=== PATIENT | male | born 1975 | race Caucasian/White ===

== ENCOUNTER 2024-01-04 06:07 | Inpatient (IN) ==
--- NOTE | 2023-12-16 13:31 | PAT Medication Instructions ---
Medication Instructions Date of Service December 16, 2023 Home Medications Beet Supplement 1 dose PO QAM insulin aspart U-100 100 unit/mL (3 mL) subcutaneous pen (Novolog FlexPen U-100 Insulin aspart) 1 sliding scale dose subcut USEASDIRECTD insulin glargine 100 unit/mL (3 mL) subcutaneous pen (Lantus Solostar U-100 Insulin) 24 unit subcut QAM losartan 50 mg tablet 50 mg PO QAM multivitamin 1 tab PO QAM STOP taking 2 weeks before surgery (or as soon as possible if surgery is within 2 weeks) Beet Supplement 1 dose PO QAM DO NOT take the morning of surgery insulin aspart U-100 100 unit/mL (3 mL) subcutaneous pen (Novolog FlexPen U-100 Insulin aspart) 1 sliding scale dose subcut USEASDIRECTD losartan 50 mg tablet 50 mg PO QAM multivitamin 1 tab PO QAM Insulin Dependent Diabetic Patients * Test your blood sugar the morning of surgery * If Blood Sugar is GREATER THAN 150, take HALF of your regular dose of: insulin glargine 100 unit/mL (3 mL) subcutaneous pen (Lantus Solostar U-100 Insulin). * If Blood Sugar is LESS THAN 150, DO NOT TAKE ANY: insulin glargine 100 unit/mL (3 mL) subcutaneous pen (Lantus Solostar U-100 Insulin). Other Notes NOTHING TO EAT OR DRINK AFTER MIDNIGHT. If you have any questions please call us at [phone] or [phone] or [phone] or [phone]
--- NOTE | 2023-12-21 10:18 | Anesthesiology Consultation ---
Date of Service December 21, 2023 Assessment & Plan (1) Encounter for pre-operative examination: - Check BSG AM DOS - Infectious disease screening: Per assessment on 12/21/23: No known infectious disease contacts or current infectious disease symptoms. No noted recent Covid positive test result. - S PCP visit (12/20/23): "HTN:- currently on Losartan 50mg daily - complaint with med.. IDDM:- Currently on Lantus 24 units AM, and novolog ISS- used to take metformin - per pt he was dx with retinopathy.. Undergoing lower back surgery in december.. Due to elevated BP increased the losartan 100mg daily.. Will add metformin to the current regimen" - Heavy ETOH use: Patient reports drinking 12 beers/day on average. States ETOH use only in the evening, denies morning ETOH use. Chart Review Chart Review: Acceptable Risk for Surgery and Patient seen in Pre Admission Testing Teaching & Discussion Pre-Anesthesia Teaching/Discussion Notes: Instructed NPO after midnight before surgery,except medications with 15 cc of water. Medication instructions provided according to the PAT guidelines. History Surgery Operation Date: 01/04/24 07:45 Proposed Procedures p L3-L5 Decompression and Fusion Spinal Cord Monitoring - Tigre Miranda DO Height/Weight Height: 5 ft 10 in Weight: 100.7 kg Allergies Allergy/AdvReac Type Severity Reaction Status Date / Time No Known Allergies Allergy Unknown Verified 12/15/23 11:56 Medications Home Medications Medication Instructions Recorded Confirmed Last Taken Beet Supplement 1 dose PO QAM 12/15/23 12/15/23 Unknown insulin aspart U-100 100 unit/mL 1 sliding scale dose subcut 12/15/23 12/15/23 Unknown (3 mL) subcutaneous pen (Novolog USEASDIRECTD FlexPen U-100 Insulin aspart) insulin glargine 100 unit/mL (3 24 unit subcut QAM 12/15/23 12/15/23 Unknown mL) subcutaneous pen (Lantus Solostar U-100 Insulin) multivitamin 1 tab PO QAM 12/15/23 12/15/23 Unknown losartan 100 mg tablet 100 mg PO QAM 12/21/23 12/21/23 Unknown metformin 500 mg tablet,extended 1,000 mg PO QAM 12/21/23 12/21/23 Unknown release 24 hr Past Medical History Medical History Diabetic retinopathy DM type 2 (diabetes mellitus, type 2) IDDM HLD (hyperlipidemia) no meds at present HTN (hypertension) Lumbar degenerative disc disease Spinal stenosis Exercise / Class Metabolic Activity II 4-5 Yardwork/Stairs/Walk up hill (one FS: No CP, no SOB) Past Family History Family History Other No family history of adverse response to anesthesia Past Surgical History Surgical History History of back surgery History of mandibular surgery Jaw fracture repair (+ hardware) 20+ years ago History of non-cataract eye surgery Eye shots r/t diabetic retinopathy Past Anesthesia History No Hx of Anesthesia Complications and No Family Hx of Anesthesia Complications History of PONV No Hx of PONV and No Hx of Motion Sickness Social History Smoking Status: Never smoker Do You Dip or Chew Tobacco: Yes (1 can/day- Advised none DOS) Hx Alcohol Use: Yes Alcohol type: beer alcohol intake frequency: 3 or more drinks per day (12 beers/day- evening (no morning ETOH use)) Hx Substance Use: No substance use type: does not use Review of Systems Patient denies chest pain, shortness of breath, dyspnea on exertion, fever, chills, cough, wheezing, palpitations. Physical Exam Vital Signs BP 142/92 P 87 TEMP 98.6 SP02 96%RA RESP 16 Physical Full cervical extension range of motion. Full TMJ range of motion. TMD 3 finger breaths Mallampati Score 3 Dentition: lower partial Lungs: clear throughout to auscultation Cardiac: regular rate and rhythm, no murmurs noted Spine: normal Carotid arteries: negative bruit Extremities: no LE edema Lab Results Anesthesia Preop Results Results Anesthesia Widget: WBC 5.28 K/ul (4.8-10.8) 12/21/23 Hgb 14.0 g/dl (14.0-18.0) 12/21/23 Hct 41.1 % (42.0-52.0) L 12/21/23 Plt 296 K/uL (130-400) 12/21/23 Na 142 mmol/L (136-145) 12/21/23 K 4.1 mmol/L (3.5-5.1) 12/21/23 Cl 109 mmol/L (98-107) H 12/21/23 CO2 27 mmol/L (21-32) 12/21/23 BUN 13 mg/dl (6-23) 12/21/23 Creat 0.69 mg/dl (0.6-1.4) 12/21/23 Glucose Level 179 mg/dl (70-99(Fasting)) H 12/21/23 PT 10.3 Seconds (9.0-12.0) 12/21/23 PTT 27 Seconds (21-31) 12/21/23 INR 0.9 (0.9-1.1) 12/21/23 HA1c 6.7 % (4.5-5.6) H 12/21/23 Urine Color Yellow 12/21/23 Urine Appearance Clear (Clear) 12/21/23 Urine pH 6.5 (4.5-7.5) 12/21/23 Urine Specific [place] 1.030 (1.000-1.030) 12/21/23 Urine Protein 1+ (Negative) H 12/21/23 Urine Glucose (UA) Negative (Negative) 12/21/23 Urine Ketones Trace (Negative) H 12/21/23 Urine Blood Negative (Negative) 12/21/23 Urine Nitrite Negative (Negative) 12/21/23 Urine Bilirubin Negative (Negative) 12/21/23 Urine Urobilinogen Negative (Negative) 12/21/23 Urine Leukocyte Esterase Negative (Negative) 12/21/23 Urine WBC (Auto) 1-5 /hpf (0-5) 12/21/23 Urine RBC (Auto) 0-4 /hpf (0-4) 12/21/23 Urine Hyaline Casts (Auto) 1-5 /lpf (0-5) 12/21/23 Urine Epithelial Cells (Auto) 20-30 /lpf (0-5) H 12/21/23 Urine Bacteria (Auto) Negative (Negative) 12/21/23 Blood Type B Positive 12/21/23 Antibody Screen NEGATIVE 12/21/23 Testing Electrocardiogram Date: 12/21/23 Findings: + NSR @ (80) Chest X-Ray Date: 12/21/23 FINDINGS: Lung volumes are normal. Lungs are clear. There is no pneumothorax or pleural effusion. Cardiac size is normal. Mediastinal contours are normal. There is no evidence for pulmonary edema. IMPRESSION: No acute cardiopulmonary findings.
[2024-01-04] MEDS: GABAPENTIN 900 MG DOSE PO SCH (06:42)
[2024-01-04] MEDS: LR 15ML/HR IV SCH (06:42)
[2024-01-04] MEDS: ACETAMINOPHEN 500 MG TAB PO SCH (06:42)
[2024-01-04] MEDS: LR 60ML/HR IV SCH (06:42)
[2024-01-04] MEDS: CeleBREX 200 MG CAP PO SCH (06:42)
[2024-01-04] MEDS ORDERED: LIDOCAINE 2% 2 ML VIAL/AMP(20MG/ML) INFIL ONE (06:47)
[2024-01-04] MEDS ORDERED: PROPOFOL IV EMULSION 10 MG/ML 20 ML VIAL IV ONE (06:47)
[2024-01-04] MEDS ORDERED: MIDAZOLAM HCL 1 MG/ML 2ML VIAL ONE (06:48)
[2024-01-04] MEDS ORDERED: fentaNYL citrate PF 100 MCG/2 ML VIAL ONE (06:48)
[2024-01-04] MEDS ORDERED: ROCURONIUM BROMIDE 10 MG/ML 5 ML VIAL IV ONE ×3 (07:02→09:05)
[2024-01-04] MEDS ORDERED: ePHEDrine sulfate 50 MG/ML AMP IV PRN (07:13)
[2024-01-04] MEDS ORDERED: ATROPINE SULFATE 0.1 MG/ML 10ML SYR IV PRN (07:13)
[2024-01-04] MEDS ORDERED: fentaNYL citrate PF 100 MCG/2 ML VIAL IV PRN (07:13)
[2024-01-04] MEDS ORDERED: HYDROmorphone INJ 2 MG/ML SYR/VIAL IV PRN (07:13)
[2024-01-04] MEDS ORDERED: ONDANSETRON INJ 2 MG/ML 2 ML VIAL IV PRN ×2 (07:13→11:07)
--- NOTE | 2024-01-04 07:48 | History & Physical Bridge Note ---
Date of Service January 04, 2024 History & Physical Bridge Note I have examined the patient, reviewed the History & Physical and in the interval since the performance of the History & Physical I have noted the following changes of clinical significance: no changes noted
--- NOTE | 2024-01-04 07:50 | History & Physical Report ---
Date of Service January 04, 2024 Assessment & Plan (1) Neurogenic claudication due to lumbar spinal stenosis: Plan: L3-L5 decompression and fusion History of Present Illness Chief Complaint: Back and leg pain Primary Care Provider: Addi Wright MD This is a 41-year-old male presents for chronic persistent back and leg pain and failing since course of nonoperative care is here for surgical invention. Allergies Allergy/AdvReac Type Severity Reaction Status Date / Time No Known Allergies Allergy Unknown Verified 01/04/24 06:25 Home Medications Medication Instructions Recorded Confirmed Type Beet Supplement 1 dose PO QAM 12/15/23 01/04/24 History insulin aspart U-100 100 unit/mL 1 sliding scale dose subcut 12/15/23 01/04/24 History (3 mL) subcutaneous pen (Novolog USEASDIRECTD FlexPen U-100 Insulin aspart) insulin glargine 100 unit/mL (3 24 unit subcut QAM 12/15/23 01/04/24 History mL) subcutaneous pen (Lantus Solostar U-100 Insulin) multivitamin 1 tab PO QAM 12/15/23 01/04/24 History losartan 100 mg tablet 100 mg PO QAM 12/21/23 01/04/24 History metformin 500 mg tablet,extended 1,000 mg PO QAM 12/21/23 01/04/24 History release 24 hr Past Med/Surg History Medical History Diabetic retinopathy DM type 2 (diabetes mellitus, type 2) IDDM HLD (hyperlipidemia) no meds at present HTN (hypertension) Lumbar degenerative disc disease Spinal stenosis Surgical History History of back surgery History of mandibular surgery Jaw fracture repair (+ hardware) 20+ years ago History of non-cataract eye surgery Eye shots r/t diabetic retinopathy Family History Other No family history of adverse response to anesthesia Social History Smoking Status: Never smoker Tobacco Type: Smokeless Tobacco (Dip or Chew) Second Hand Exposure: No; Do You Dip or Chew Tobacco: Yes (1 can/day- Advised none DOS); Tobacco Cessation Education Requested by Patient: No Hx Alcohol Use: Yes Alcohol type: beer Hx Substance Use: No Preferred Language: Kinyarwanda Communication Ability: Effective Commercial Construction Estimator Required: No Beliefs That Will Affect Care: None Current Living Situation: Spouse and Family Feels Safe at Home: Yes Safety Concerns: Feels Safe At This Time Assistive Devices: None Physical Exam Physical Exam: Patient is alert and oriented Heart regular in rhythm lungs clear Results & Data Results & Data Vital Signs (Past 12 Hours) Vital Signs Temp Pulse Resp BP Pulse Ox O2 Del Method 01/04/24 06:28 36.8 C 100 H 18 185/94 H 99 Room Air
[2024-01-04] MEDS: ceFAZolin 2000MG 2,000 MG/15 ML SYR IV SCH ×2 (07:56→15:38)
[2024-01-04] MEDS: BUPIVACAINE/EPINEPHRINE 0.5% MPF 1:200,000 30 ML VIAL ONE (08:23)
[2024-01-04] MEDS ORDERED: SUCCINYLCHOLINE CHLORIDE 20 MG/ML 10 ML VIAL IV ONE (08:33)
[2024-01-04] MEDS ORDERED: PHENYLEPHRINE 100MCG/ML 10ML SYR IV ONE (08:34)
[2024-01-04] MEDS ORDERED: PHENYLEPHRINE HCL 10 MG/ML VIAL ONE (08:49)
[2024-01-04] MEDS: ceFAZolin 330 MG/ML 1 GM VIAL ONE (09:09)
[2024-01-04] MEDS: FLOSEAL HEMOSTATIC MATRIX 10ML TOP ONE (09:43)
[2024-01-04] MEDS ORDERED: SUGAMMADEX SODIUM 200 MG/2 ML VIAL IV ONE (09:43)
--- NOTE | 2024-01-04 09:52 | Operative Report ---
Post Operative Report Pre & Post Diagnosis Operation Date: 01/04/24 07:45 Pre-Op Diagnosis: Recurrent Herniation Lumbar Disc, Spinal Stenosis Post-Op Diagnosis: Recurrent Herniation Lumbar Disc, Spinal Stenosis I identified the patient and participated in the time-out.: Yes Procedure Operation Date: 01/04/24 07:45 Actual Procedures #1 revision decompression with bilateral medial facetectomies and foraminotomies L3-L4 L4-5 per #2 posterior spinal fusion L3-L4 L4-L5. #3 placed posterior instrumentation L3-L5. #4 interbody fusion L3-L4 L4-L5 #5 placement Spira 14 x 26 mm at L3-L4 and 13 x 26 mm at L4-5 by #6 placement locally harvested morselized autograft in the posterior gutters. #7 placement infuse collagen sponge combined with Koros bone graft in the posterior gutters and course bone graft interbody space. Surgeon Tigre Miranda, DO Purification Operator Helper Lizzy Fox Estimated Blood Loss 250 Findings See Below Patient is 5 foot 10 weighing over 101 kg with a BMI of 32. The patient brought habitus did create significant technical difficulty with exposure and the procedure itself adding at least 50% increased operative time. Specimens None Indications This is a 41-year-old male well-known to me the presents above-mentioned diagnosis after failed course of nonoperative care is here for surgical in vention. Description of Procedure Patient was met with identified informed consent obtained. Patient was then taken to the operative suite underwent patient placed in a prone position the [place] table top Trace frame. Operative prominences well-padded eyes inspected to ensure no external pressure placed upon them. This point lumbar spine was prepped and draped in a sterile fashion. Sharp dissection with the assistance of Bovie cautery to form down to and exposing the remaining lamina and transverse processes of L3-L4 and L5 bilaterally. From caudal cephalad fashion revision laminectomy of L4 and L3 was performed including bilateral medial facetectomies and foraminotomies addressing severe spinal stenosis. Pedicle screws were then placed with the assistance of fluoroscopy and appropriate sized rosa placed. By way of a transforaminal approach on the right complete discectomy of L for L5 was performed endplates guided to subcortical bleeding bone and a 13 x 26 mm Spira cage filled with Koros bone graft tapped in position. Then proceeded to L3-L4 and again by way of transforaminal approach and right complete discectomy performed endplates guided to subcortical mean bone and a 14 x 26 mm Spira cage with I factor tapped in position. The rods were then compressed locked in final position bilaterally. The transverse processes of L3 L4-5 burred to subcortical bleeding bone. Infuse collagen sponge, with Koros and local autograft placed in the posterior gutters. 15 round JULIO C inserted. The incision was then closed with 1 Vicryl the fascia 2-0 Vicryl subcutaneously and 4 Onikul for final skin closure. Steri-Strips sterile dressing placed. Patient waken taken to PACU stable condition. Please note spinal cord monitoring was utilized at the procedure no changes noted. Lastly Lizzy Fox was present at the entire surgery about the patient positioning complex portion of the surgery and final skin closure. I attest to the content of the Intraoperative Record and any orders documented therein. Any exceptions are noted below.
--- NOTE | 2024-01-04 10:16 | Fluoroscopy Report ---
FL lumbar spine 2-3V CLINICAL HISTORY: L3-L5 DFI TECHNIQUE: 2 views were obtained with the C-arm in the OR with the above procedure. Total fluoroscopy time was 31.5 seconds. Radiation dose was 30.99 mGy. Comparison: None available at the time of this dictation. FINDINGS/IMPRESSION: Intraoperative images were obtained of L3-L5 decompression and fusion. Please correlate with intraoperative fluoroscopy and operative report. ACT 112: Negative or not required by law. Electronically signed by: Francesco Wall M.D. 01/04/2024 10:15 AM
--- NOTE | 2024-01-04 11:02 | Anesthesiology Progress Note ---
Date of Service January 04, 2024 Anesthesia Post Procedure Vital Signs Vital Signs: Temp Pulse Pulse Resp BP Pulse Ox O2 Del Method 01/04/24 10:45 37.0 C 84 20 147/83 H 97 Room Air 01/04/24 10:35 36.1 C L 81 14 142/80 H 97 Room Air 01/04/24 10:25 82 16 151/75 H 99 Oxymask 01/04/24 10:15 85 18 135/74 99 Oxymask 01/04/24 10:09 36.0 C L 81 12 130/81 99 Oxymask 01/04/24 06:28 36.8 C 100 H 18 185/94 H 99 Room Air O2 Flow Rate 01/04/24 10:45 0 01/04/24 10:35 0 01/04/24 10:25 2 01/04/24 10:15 8 01/04/24 10:09 8 01/04/24 06:28 Pain Intensity Back: Pain Intensity: 2 Transfer of Care Handoff Completed per policy Notes Mental Status: alert / awake / arousable and participated in evaluation Patient Amnestic to Procedure: Yes Nausea / Vomiting: adequately controlled Pain: adequately controlled Airway Patency, RR, SpO2: stable & adequate BP & HR: stable & adequate Hydration State: stable & adequate Anesthetic Complications: no major complications apparent and Pt Satisfied with anesthetic care
[2024-01-04] MEDS ORDERED: METOCLOPRAMIDE HCL INJ 5 MG/ML 2 ML VIAL IV PRN (11:07)
[2024-01-04] MEDS ORDERED: PROMETHAZINE HCL 12.5 MG in SODIUM CHLORIDE 0.9% 50 ML IV PRN (11:07)
[2024-01-04] MEDS ORDERED: NALOXONE HCL 0.4 MG/1 ML VIAL/CARP IV PRN (11:07)
[2024-01-04] MEDS ORDERED: ONDANSETRON 4 MG OD TAB PO PRN (11:07)
[2024-01-04] MEDS ORDERED: bisacodyL 10 MG SUPP PR PRN (11:07)
[2024-01-04] MEDS ORDERED: FAMOTIDINE 20 MG TAB PO PRN (11:07)
[2024-01-04] MEDS ORDERED: ACETAMINOPHEN 1,000 MG/100 ML VIAL IV PRN (11:07)
[2024-01-04] MEDS ORDERED: ALUMINUM/MAGNESIUM SUSP 30 ML UDC PO PRN (11:07)
[2024-01-04] MEDS ORDERED: DO NOT ADMINISTER FLU VACCINE PRN (11:07)
[2024-01-04] MEDS ORDERED: LORazepam 0.5 MG TAB PO PRN (11:07)
[2024-01-04] MEDS ORDERED: DO NOT ADMINISTER PNEUMOCOCCAL VACCINE PRN (11:07)
[2024-01-04] MEDS ORDERED: LORazepam 0.5 MG in SYRINGE 0.25 ML IV PRN (11:07)
[2024-01-04] MEDS ORDERED: NON-FORMULARY MEDICATION (Insulin Aspart U-100 [Novolog Flexpen U-100 Insulin] 100 unit/mL SQ SCH (11:07)
[2024-01-04] MEDS ORDERED: PHARMACY GLYCEMIC MGMT CONSULT PRN (11:07)
[2024-01-04] MEDS ORDERED: SOD PHOSPHATE/SOD BIPHOSPHATE ENEMA 132 ML BTL PR PRN (11:07)
[2024-01-04] MEDS ORDERED: MAGNESIUM HYDROXIDE SUSP 30 ML UDC PO PRN (11:07)
[2024-01-04] MEDS ORDERED: ACETAMINOPHEN 500 MG TAB PO PRN (11:07)
[2024-01-04] MEDS ORDERED: HYDROmorphone INJ 1 MG/ML SYRINGE IV PRN (11:07)
[2024-01-04] MEDS ORDERED: diphenhydrAMINE Capsule 25 MG CAP PO PRN (11:07)
[2024-01-04] MEDS ORDERED: hydrOXYzine HCl 25 MG TAB PO PRN (11:07)
[2024-01-04] MEDS: HYDROmorphone INJ 0.5 MG/0.5 ML SYR IV PRN (11:27)
[2024-01-04] MEDS: LACTATED RINGER'S 1,000 ML IV SCH (11:31)
[2024-01-04] MEDS: KETOROLAC 30 MG/ML VIAL IV SCH (12:15)
[2024-01-04] MEDS: INSULIN ASPART PER UNIT CHARGE SC SCH (12:21)
--- NOTE | 2024-01-04 12:24 | Consultation ---
Date of Consultation January 04, 2024 Assessment & Plan (1) Status post lumbar surgery: (2) Neurogenic claudication due to lumbar spinal stenosis: Post op day# 0 S/P revision decompression and fusion L3-L5 by Dr Miranda EBL#[id number] Pain management per ortho Wound management per ortho PT/OT as appropriate DVT prophylaxis per ortho Incentive spirometry Monitor H&H for acute blood loss anemia; pre-op Hgb: 14 (3) DM type 2 (diabetes mellitus, type 2): Insulin-dependent A1c: 6.7 on 12/21/2023 Hold home metformin Basal bolus insulin per protocol. Glycemic pharmacist managing (4) HTN (hypertension): Continue losartan with holding parameters (5) GERD (gastroesophageal reflux disease): Continue PPI (6) HLD (hyperlipidemia): Currently not on medication DVT Prophylaxis SCDs Disposition per primary service Follows with Dr Wrgiht for routine care Pt was seen and care coordinated with Dr Young. See addendum Supervising Physician Co-Signing Physician Notes Pt was seen and examined by myself, Izabella Young MD on the day of service. Care was coordinated with Emi Montalvo PA-C. 49yoM with PMHx significant for DMII, HTN s/p revision decompression and spinal fusion today. On exam, AAOx3, was laying in bed, asking about sitting up RRR, abdomen soft DMII- hold home metformin and insulin, ISS per protocol here Otherwise as above. I spent a total [id number] coordinating, documenting, and providing care for this patient excluding time spent in the performance of separately billed services History of Present Illness Requesting Physician: Dr Miranda Reason for Consultation: Post op medical management Attending Physician: Tigre Miranda DO History of Present Illness Patient is 49 year old male with PMH HTN, dyslipidemia, insulin-dependent DM II, GERD seen in medical consultation s/p revision L3-L5 decompresion and fusion today by Dr Miranda. Post op patient reports doing well and pain controlled. Denies extremity pain currently. Last BM today. Has Lima cath in place. Denies MBARY, fever/chills, N/V/D/C, dizziness, neck pain, CP, SOB, cough, sore throat, rhinorrhea, abdominal pain, extremity weakness, extremity edema, rashes, urinary symptoms. Allergies Allergy/AdvReac Type Severity Reaction Status Date / Time No Known Allergies Allergy Unknown Verified 01/04/24 06:25 Home Medications Medication Instructions Recorded Confirmed Type Beet Supplement 1 dose PO QAM 12/15/23 01/04/24 History insulin aspart U-100 100 unit/mL 1 sliding scale dose subcut 12/15/23 01/04/24 History (3 mL) subcutaneous pen (Novolog USEASDIRECTD FlexPen U-100 Insulin aspart) insulin glargine 100 unit/mL (3 24 unit subcut QAM 12/15/23 01/04/24 History mL) subcutaneous pen (Lantus Solostar U-100 Insulin) multivitamin 1 tab PO QAM 12/15/23 01/04/24 History losartan 100 mg tablet 100 mg PO QAM 12/21/23 01/04/24 History metformin 500 mg tablet,extended 1,000 mg PO QAM 12/21/23 01/04/24 History release 24 hr pantoprazole 40 mg tablet,delayed 40 mg PO DAILY 01/04/24 01/04/24 History release Patient History Medical History (Updated 01/04/24 @ 12:54 by Emi Montalvo PA-C) GERD (gastroesophageal reflux disease) DM type 2 (diabetes mellitus, type 2) IDDM Diabetic retinopathy Lumbar degenerative disc disease Spinal stenosis HLD (hyperlipidemia) no meds at present HTN (hypertension) Surgical History (Updated 01/04/24 @ 12:54 by Emi Montalvo PA-C) History of mandibular surgery Jaw fracture repair (+ hardware) 20+ years ago History of back surgery History of non-cataract eye surgery Eye shots r/t diabetic retinopathy Family History Other No family history of adverse response to anesthesia Social History Smoking Status: Never smoker Tobacco Type: Smokeless Tobacco (Dip or Chew) Second Hand Exposure: No; Do You Dip or Chew Tobacco: Yes; Tobacco Cessation Education Requested by Patient: No Hx Alcohol Use: Yes Alcohol type: beer Hx Substance Use: No Preferred Language: [place]ian Communication Ability: Effective Physician Coder Required: Yes Beliefs That Will Affect Care: None Current Living Situation: Spouse Other Information That Helps Us Care for You: No Feels Safe at Home: Yes Safety Concerns: Feels Safe At This Time Assistive Devices: None Review of Systems Review of Systems: All systems reviewed & are unremarkable except as noted in HPI & below Physical Exam Physical Exam: General: no acute distress, overweight Head: normocephalic, atraumatic Eyes: conjunctiva non-injected, anicteric ENT: normal inspection external ears, nose, mucous membranes moist Neck: supple, trachea midline Lungs: clear, no respiratory distress, no wheezing/rhonchi/rales CV: RRR, no murmur, no pretibial edema Abd: normal BS, soft, non-tender Back: surgical dressing in place. +JULIO C drain in place with serosanguineous drainage Ext: no cyanosis, no calf tenderness Neuro: A&O x 3, no focal deficits noted, normal affect Skin: warm, dry Results & Data Vital Signs (Past 12 Hours) Vital Signs Temp Pulse Pulse Resp BP Pulse Ox O2 Del Method 01/04/24 11:54 85 16 154/89 H 91 01/04/24 11:30 80 16 137/82 95 Room Air 01/04/24 11:00 36.9 C 79 16 150/89 H 96 Room Air 01/04/24 10:45 37.0 C 84 20 147/83 H 97 Room Air 01/04/24 10:35 36.1 C L 81 14 142/80 H 97 Room Air 01/04/24 10:25 82 16 151/75 H 99 Oxymask 01/04/24 10:15 85 18 135/74 99 Oxymask 01/04/24 10:09 36.0 C L 81 12 130/81 99 Oxymask 01/04/24 06:28 36.8 C 100 H 18 185/94 H 99 Room Air O2 Flow Rate 01/04/24 11:54 01/04/24 11:30 01/04/24 11:00 01/04/24 10:45 0 01/04/24 10:35 0 01/04/24 10:25 2 01/04/24 10:15 8 01/04/24 10:09 8 01/04/24 06:28
--- NOTE | 2024-01-04 15:01 | Pharmacy Report ---
Pharmacy Glycemic Short Note 2 - Date of Service January 04, 2024 - Glycemic Short BSG Results (Last 24 hours): 01/04/24 01/04/24 01/04/24 06:31 10:13 11:37 POC Glucose 223 H 129 H 137 H OUTPATIENT ANTIDIABETIC REGIMEN: * metformin 1000mg QAM * Lantus 24 units QAM * Novolog SS * HbA1c 6.7% (12/21/23) ASSESSMENT: * Carlton is a 49 YOM admitted status post spinal decompression/fusion with a history of insulin dependent T2DM. Pharmacy has been consulted to assist with glycemic management while inpatient * Preoperative BSG this AM elevated, per med rec, patient received 24 units of Lantus and 8 units of Novolog at 0430. BSGs trended down to goal range at lunch time. * He does not appear to have received any steroids preoperatively or orders postoperatively. Basal scale added at bedtime if BSGs elevated. Will start basal insulin tomorrow at approximately 50% home dose * Novolog initiated at weight based stress of 2.5 PLAN FOR INPATIENT GLYCEMIC CONTROL: * Hold outpatient oral diabetes medications * Basal insulin * Lantus 0-10 units SQ HS (see eMAR for additional details) * Lantus 15 units SQ daily * Bolus insulin * NovoLog per scale ACHS or Q6hrs while NPO * Goal Range: Low 110 mg/dL - High 140 mg/dL * Correction Factor: 20 mg/dL/unit * Nutritional / Prandial insulin per carb ratio of 1 unit per 6 grams CHO consumed
--- OUTSIDE RECORDS SUMMARY | 2024-01-04 17:58 | External Medical Summary | Summary of Care ---
Author Name Unknown Organization [facility] Address [address] [facility] [place] [address] Phone [phone] Care Team Providers Care Surgery Technician Name Role Phone Addi Wright MD Primary Care Provide r Reason for Visit * Reason Comments eRx-Medication Refill Encounter Details Date Type Department Care Team (Late st Contact Info) Description 12/24/2023 Refill Family Medicine [address] [phone] Kaylee Hilton PA-C [address] [place] [address] [place] [address] Chronic bilateral low back pain with left-sided sciatica Allergies No known active allergiesdocumented as of this encounter (statuses as of 12/26/2023) Medications Medication Sig Dispensed Refills Start Date End Date Status LANCETS MISC. MISCIndications:DM type 2, goal A1c below 7 bid 50 5 07/11/2001 Active [employer] ULTRA SYSTEM W/DEVICE KITIndications:DM type 2, not at goal (HCC) Use up to five times a day as directed 1 Kit 0 10/16/2012 Active BD PEN NEEDLE MINI U/F 31G X 5 MM MISCIndications:DKA, type 2, not at goal (HCC) FOR USE WITH NOVOLOG FLEX PEN 100 Syringe 5 05/27/2014 Active NOVOLOG FLEXPEN 100 UNIT/ML SUBQ SOPNIndications:DM type 2, goal A1c below 7 INJECT 10 UNITS THREE X A DAY BEFORE MEALS 5 Pen 5 08/16/2014 Active [employer] ULTRA BLUE STRPIndications:DM type 2, not at goal (HCC) TEST 5 X PER DAY 200 Strip 5 01/21/2015 Active insulin glargine (LANTUS SOLOSTAR) 100 UNIT/ML SOPN Inject 24 Units under the skin 2 times a day. 5 Pen 5 02/27/2015 Active metFORMIN HCl ER 500 MG Oral Tablet Extended Release 24 Hour (Glucophage XR)Indications:Type 2 diabetes mellitus with diabetic neuropathy, unspecified whether equipment operator intermodal yard insulin use (HCC) Take 2 Tablets by mouth in the morning. 180 Tablet 1 12/20/2023 Active Losartan Potassium 100 MG Oral Tablet (Cozaar)Indications: HTN, goal below 140/90 Take 1 Tablet by mouth in the morning. 90 Tablet 1 12/20/2023 Active Pantoprazole Sodium 40 MG Oral Tablet Delayed Release (Protonix)Indication s:Gastroesophageal reflux disease without esophagitis Take 1 Tablet by mouth in the morning. 30 minutes before the first meal of the day. Do not crush, split or chew the tablet. 30 Tablet 5 12/20/2023 Active documented as of this encounter (statuses as of 12/26/2023) Active Problems Problem Noted Date Diagnosed Date History of retinopathy 12/20/2023 Trigger ring finger of right hand 09/09/2023 Chewing tobacco use 12/22/2018 Obesity, Class I, BMI 30.0-34.9 (see actual BMI) 12/22/2018 DM neuropathy, type II diabetes mellitus 013 HTN, GOAL BELOW 140/80 06/12/2012 Overview: Per HTN Protocol #27. Dyslipidemia, goal LDL below 100 03/08/2011 Type 2 diabetes mellitus wit h hemoglobin A1c goal of less than 7.0% 08/21/2009 Overview: Per Diabetes Taxonomy. ICD-10 update of inactive term Schmorl's nodes of lumbar region 09/27/2005 Overview: T11 through L4 Displacement of lumbar inter vertebral disc without myelopathy 09/27/2005 Overview: posterior disc herniation L3-4 and L4-5 Degeneration of lumbosacral intervertebral disc 09/27/2005 Overview: multilevel degenerative disc disease most marked at L3-4 and L4-5 BPH with obstruction/lower urinary tract symptom s 12/29/2004 documented as of this encounter (statuses as of 12/26/2023) Resolved Problems Problem Noted Date Diagnosed Date Resolved Date DKA, type 2, not at goal 03/29/201903/2019 Nasal septal spur 10/16/2012 12/22/2018 Chronic sinusitis 10/16/2012 12/22/2018 Mixed dyslipidemia 04/22/2010 1 HTN, GOAL BELOW 130/80 11/19/200906/15 Overview: Modified per HTN Taxonomy. HTN, GOAL BELOW 140/90 08/29/200911/19 Overview: Modified per HTN Taxonomy. HTN, goal below 140/90 11/13/200708/29 Overview: Modified per HTN Taxonomy. Type 2 diabetes mellitus wit h hemoglobin A1c goal of less than 7.0% 06/27/2002 08/21/2009 Overview: Per Diabetes Taxonomy. ICD-10 update of inactive term documented as of this encounter (statuses as of 12/26/2023) Immunizations Name Administration Dates Next Due Hepatitis B, 20+ yrs 06/26/2019,03/29/2019,12/22 Pneumococcal Polysaccharide PPV23 (Pneumovax) 03/08/2011 Seasonal Influenza, Split, I IV3, With Preserve, Inj 10/16/2012,07/15/2011 TDAP (age 11 and older)(Adacel) 03/08/2011 documented as of this encounter Social History Tobacco Use Types Packs/Day Years Used Date Smoking Tobacco: Never Smokeless Tobacco: Current Chew Alcohol Use Standard Drinks/Week Comments Yes 0 (1 standard drink = 0.6 oz pur e alcohol) rare PHQ-2 Answer Date Recorded PHQ-2 Score 0 12/22/2018 Sex and Gender Information Value Date Recorded Sex Assigned at Not on file Gender Identity Not on file Sexual Orientation Not on file Job Start Date Occupation Industry Not on file Not on file Not on file documented as of this encounter Miscellaneous Notes * Telephone Encounter - Mariely Arriaza RN - 12/26/2023 1:21 PM ESTRefused Prescriptions: Disp Refills predniSONE 20 MG Oral Tablet (Deltasone) 10 Tab*0 Sig: TAKE 2 TABLETS BY MOUTH IN THE MORNING FOR 5 DAYSRefused By: MARIELY ARRIAZA MReason for Refusal: Course of treatment complete * Telephone Encounter - Samia Monge - 12/24/2023 1:54 PM ESTPending Prescriptions: Disp Refills predniSONE 20 MG Oral Tablet [Pharmacy Med*10 Tab*0 Sig: Take 2Tablets by mouth in the morning for 5 days. documented in this encounter Plan of Treatment Upcoming Encounters Date Type Department Care Team (Late st Contact Info) Description 01/17/2024 2:40 PM EDT Office Visit Family Medicine [address] [place] [phone] Andrea Cain [address] [place] [address] Health Maintenance Due Date Last Done Comments DXA Scan 1975 Pneumococcal Vaccine: Pediatrics (0 to 5 Years) and At-Risk Patients (6 to 64 Years) (2 of 2 - PCV) 03/08/2012 03/08/2011 Diabetic Eye Exam 12/24/2015 12/23/2014 (Do ne elsewhere), 03/23/2013, 10/26/2012, Additional history exists Albumin/Creatinine Ratio 02/28/2016 015, 10/16/2012, 04/21/2010, Additional history exists Depression Screening 12/23/2019 12/22/2018 Cologuard 12/31/2020 Colonoscopy 12/31/2020 Colorectal Cancer Screening 12/31/2020 Fecal Occult Blood Test 12/31/2020 Sigmoidoscopy 12/31/2020 DTaP,Tdap,and Td Vaccines (2 - Td or Tdap) 03/08/2021 03/08/2011 COVID-19 Vaccine ( - season) 2023 Influenza Vaccine (FLU shot) (#1) 2023 10/16/2012, 07/15/2011 HbA1c 01/05/2024 07/07/2023, 03/2019, 02/27/2015, Additional history exists GFR 07/07/2024 07/07/2023, 03/2019, 02/27/2015, Additional history exists Diabetic Foot Exam 12/20/2024 12/20/2023, 0 12/22/2018, 02/27/2015, Additional history exists Lipid Panel 07/07/2028 07/07/2023, 03/2019, 02/27/2015, Additional history exists Hepatitis B Completed 06/26/2019, 03/2019, 12/22/2018 GARDASIL-HPV IMMUNIZATION SERIES Aged Out No longer eligible based on patient's age to complete this topic MENINGOCOCCAL (MENACTRA/MENVEO) Aged Out No longer eligible based on patient's age to complete this topic documented as of this encounter Medical Devices Not on filedocumented as of this encounter Visit Diagnoses Diagnosis Chronic bilateral low back pain with left-sided sciatica documented in this encounter Care Teams Surgery Technician Relationship Specialty Start Date End Date Addi Wright MD [address] [place] [address] [place] [id number] PCP - General Family Medicine 12/08/23 documented as of this encounter
[2024-01-04] MEDS: oxyCODONE HCL IR 5 MG TAB (IMMEDIATE RELEASE) PO PRN (20:43)
[2024-01-04] MEDS: DOCUSATE SODIUM/SENNA 50/8.6MG TAB PO SCH (20:43)
[2024-01-04] MEDS: LANTUS PER UNIT CHARGE SC SCH (21:12)
[2024-01-05] MEDS: POLYETHYLENE (MIRALAX) 17 GM PACK PO SCH (05:37)
[2024-01-05 06:24] LABS: Basophils # (auto) 0.05 K/uL (0.00-0.20); Basophils % (auto) 0.6 %; Hematocrit (blood only) 34.5 % (42.0-52.0); Hemoglobin 11.1 g/dl (14.0-18.0); Immature Granulocytes # (auto) 0.03 K/uL (0.01-0.20); Immature Granulocytes % (auto) 0.4 %; Lymphocytes # (auto) 1.36 K/uL (1.20-3.40); Lymphocytes % (auto) 16.9 %; Mean Corpuscular Hemoglobin 31.1 pg (25.0-34.0); Mean Corpuscular Hgb Conc 32.2 g/dL (32.0-36.0); Mean Corpuscular Volume 96.6 fL (80.0-100.0); Mean Platelet Volume 10.6 fL (9.4-12.4); Monocytes # (auto) 0.72 K/uL (0.11-0.59); Monocytes % (auto) 8.9 %; Neutrophils # (auto) 5.51 K/uL (1.40-6.50); Neutrophils % (auto) 68.2 %; Platelet Count 223 K/uL (130-400); RDW Coefficient of Variation 11.7 % (11.5-14.5); RDW Standard Deviation 41.3 fL (36.4-46.3); Red Blood Count 3.57 M/uL (4.70-6.10); White Blood Count 8.07 K/ul (4.8-10.8)
[2024-01-05 06:43] LABS: Calcium 8.2 mg/dl (8.6-10.3); Creatinine Clr Calc Pharmacy 125.2 ml/min; Est GFR (African American) 118.8 ml/min; Est GFR (Non-African American) 102.5 ml/min; Potassium 4.4 mmol/L (3.5-5.1)
--- NOTE | 2024-01-05 08:00 | Hospitalist Progress Note ---
Date of Service January 05, 2024 Assessment & Plan (1) Status post lumbar surgery: (2) Neurogenic claudication due to lumbar spinal stenosis: Plan: Post op day# 1 S/P revision decompression and fusion L3-L5 by Dr Miranda Pain management per ortho Wound management per ortho PT/OT as appropriate DVT prophylaxis per ortho Incentive spirometry Acute blood loss anemia, post-op vs. dilutional - pre-op Hgb: 14 -> current ~11 - cont. to monitor (3) DM type 2 (diabetes mellitus, type 2): Plan: Insulin-dependent A1c: 6.7 on 12/21/2023 Hold home metformin Basal bolus insulin per protocol. Glycemic pharmacist managing (4) HTN (hypertension): Plan: Continue losartan with holding parameters (5) GERD (gastroesophageal reflux disease): Plan: Continue PPI (6) HLD (hyperlipidemia): Plan: Currently not on medication DVT Prophylaxis SCDs Disposition per primary service Admission and Anticipated Discharge Date Admission Date: January 04, 2024 Subjective Pt seen in follow up of med consult s/p spinal surgery Currently laying in bed in NAD Says he has been walking quite a bit and felt really well, then later when he applied ice on his back he had more back ache No fever, chills, chest pain, shortness of breath. No abd. pain, n/v. he is passing flatus Review of Systems Review of Systems: All systems reviewed & are unremarkable except as noted in Subjective Physical Exam Physical Exam: General: no acute distress, overweight Head: normocephalic, atraumatic Eyes: conjunctiva non-injected, anicteric ENT: normal inspection external ears, nose, mucous membranes moist Neck: supple Lungs: clear, no respiratory distress, no wheezing/rhonchi/rales CV: RRR, no murmur, no pretibial edema Abd: normal BS, soft, non-tender Back: surgical dressing in place. +JULIO C drain in place with serosanguineous drainage Ext: no calf tenderness, moves extremities Neuro: A&O x 3, answers appropriately, speech fluent, no facial asymmetry, moves extremities Skin: warm, dry Results & Data Results & Data Vital Signs (Past 12 Hours) Vital Signs Temp Pulse Resp BP Pulse Ox O2 Del Method 01/05/24 05:29 37.2 C 94 H 16 177/93 H 97 Room Air 01/05/24 00:20 36.8 C 94 H 16 134/78 95 Room Air 01/04/24 22:56 161/85 H Laboratory Results 01/05/24 01/05/24 01/05/24 Range/Units 05:31 00:44 00:20 WBC 8.07 (4.8-10.8) K/ul RBC 3.57 L (4.70-6.10) M/uL Hgb 11.1 L (14.0-18.0) g/dl Hct 34.5 L (42.0-52.0) % MCV 96.6 (80.0-100.0) fL MCH 31.1 (25.0-34.0) pg MCHC 32.2 (32.0-36.0) g/dL RDW Std Deviation 41.3 (36.4-46.3) fL RDW Coeff of Ture 11.7 (11.5-14.5) % Plt Count 223 (130-400) K/uL MPV 10.6 (9.4-12.4) fL Immature Gran % (Auto) 0.4 % Neut % (Auto) 68.2 % Lymph % (Auto) 16.9 % [place] % (Auto) 8.9 % Eos % (Auto) 5.0 % Baso % (Auto) 0.6 % Neut # (Auto) 5.51 (1.40-6.50) K/uL Lymph # (Auto) 1.36 (1.20-3.40) K/uL [place] # (Auto) 0.72 H (0.11-0.59) K/uL Eos # (Auto) 0.40 (0.00-0.50) K/uL Baso # (Auto) 0.05 (0.00-0.20) K/uL Immature Gran # (Auto) 0.03 (0.01-0.20) K/uL Sodium 138 (136-145) mmol/L Potassium 4.4 (3.5-5.1) mmol/L Chloride 106 (98-107) mmol/L Carbon Dioxide 28 (21-32) mmol/L Anion Gap 4 (3-11) BUN 12 (6-23) mg/dl Creatinine 0.86 (0.6-1.4) mg/dl Est Cr Clr Drug Dosing 125.2 ml/min Est GFR ( Amer) 118.8 ml/min Est GFR (Non-Af Amer) 102.5 ml/min BUN/Creatinine Ratio 14.0 (10-20) Glucose 183 H (70-99(Fasting)) mg/dl POC Glucose 78 45 L* (70-99) mg/dl Calcium 8.2 L (8.6-10.3) mg/dl Crossmatch 01/05/24 01/05/24 01/04/24 Range/Units 00:16 00:14 20:50 WBC (4.8-10.8) K/ul RBC (4.70-6.10) M/uL Hgb (14.0-18.0) g/dl Hct (42.0-52.0) % MCV (80.0-100.0) fL MCH (25.0-34.0) pg MCHC (32.0-36.0) g/dL RDW Std Deviation (36.4-46.3) fL RDW Coeff of True (11.5-14.5) % Plt Count (130-400) K/uL MPV (9.4-12.4) fL Immature Gran % (Auto) % Neut % (Auto) % Lymph % (Auto) % [place] % (Auto) % Eos % (Auto) % Baso % (Auto) % Neut # (Auto) (1.40-6.50) K/uL Lymph # (Auto) (1.20-3.40) K/uL [place] # (Auto) (0.11-0.59) K/uL Eos # (Auto) (0.00-0.50) K/uL Baso # (Auto) (0.00-0.20) K/uL Immature Gran # (Auto) (0.01-0.20) K/uL Sodium (136-145) mmol/L Potassium (3.5-5.1) mmol/L Chloride (98-107) mmol/L Carbon Dioxide (21-32) mmol/L Anion Gap (3-11) BUN (6-23) mg/dl Creatinine (0.6-1.4) mg/dl Est Cr Clr Drug Dosing ml/min Est GFR ( Amer) ml/min Est GFR (Non-Af Amer) ml/min BUN/Creatinine Ratio (10-20) Glucose (70-99(Fasting)) mg/dl POC Glucose 49 L* 53 L* 143 H (70-99) mg/dl Calcium (8.6-10.3) mg/dl Crossmatch 01/04/24 01/04/24 01/04/24 Range/Units 18:38 16:48 11:37 WBC (4.8-10.8) K/ul RBC (4.70-6.10) M/uL Hgb (14.0-18.0) g/dl Hct (42.0-52.0) % MCV (80.0-100.0) fL MCH (25.0-34.0) pg MCHC (32.0-36.0) g/dL RDW Std Deviation (36.4-46.3) fL RDW Coeff of True (11.5-14.5) % Plt Count (130-400) K/uL MPV (9.4-12.4) fL Immature Gran % (Auto) % Neut % (Auto) % Lymph % (Auto) % [place] % (Auto) % Eos % (Auto) % Baso % (Auto) % Neut # (Auto) (1.40-6.50) K/uL Lymph # (Auto) (1.20-3.40) K/uL [place] # (Auto) (0.11-0.59) K/uL Eos # (Auto) (0.00-0.50) K/uL Baso # (Auto) (0.00-0.20) K/uL Immature Gran # (Auto) (0.01-0.20) K/uL Sodium (136-145) mmol/L Potassium (3.5-5.1) mmol/L Chloride (98-107) mmol/L Carbon Dioxide (21-32) mmol/L Anion Gap (3-11) BUN (6-23) mg/dl Creatinine (0.6-1.4) mg/dl Est Cr Clr Drug Dosing ml/min Est GFR ( Amer) ml/min Est GFR (Non-Af Amer) ml/min BUN/Creatinine Ratio (10-20) Glucose (70-99(Fasting)) mg/dl POC Glucose 172 H 169 H 137 H (70-99) mg/dl Calcium (8.6-10.3) mg/dl Crossmatch 01/04/24 01/04/24 Range/Units 10:13 06:29 WBC (4.8-10.8) K/ul RBC (4.70-6.10) M/uL Hgb (14.0-18.0) g/dl Hct (42.0-52.0) % MCV (80.0-100.0) fL MCH (25.0-34.0) pg MCHC (32.0-36.0) g/dL RDW Std Deviation (36.4-46.3) fL RDW Coeff of True (11.5-14.5) % Plt Count (130-400) K/uL MPV (9.4-12.4) fL Immature Gran % (Auto) % Neut % (Auto) % Lymph % (Auto) % [place] % (Auto) % Eos % (Auto) % Baso % (Auto) % Neut # (Auto) (1.40-6.50) K/uL Lymph # (Auto) (1.20-3.40) K/uL [place] # (Auto) (0.11-0.59) K/uL Eos # (Auto) (0.00-0.50) K/uL Baso # (Auto) (0.00-0.20) K/uL Immature Gran # (Auto) (0.01-0.20) K/uL Sodium (136-145) mmol/L Potassium (3.5-5.1) mmol/L Chloride (98-107) mmol/L Carbon Dioxide (21-32) mmol/L Anion Gap (3-11) BUN (6-23) mg/dl Creatinine (0.6-1.4) mg/dl Est Cr Clr Drug Dosing ml/min Est GFR ( Amer) ml/min Est GFR (Non-Af Amer) ml/min BUN/Creatinine Ratio (10-20) Glucose (70-99(Fasting)) mg/dl POC Glucose 129 H (70-99) mg/dl Calcium (8.6-10.3) mg/dl Crossmatch See Detail Medications Administered Current Inpatient Medications Acetaminophen (Acetaminophen 500 Mg Tab) 1,000 mg PO Q8H PRN PRN Reason: MILD Pain Scale 1,2,3 & Pre PT Stop: 02/03/24 11:06 Al Hydrox/Mg Hydrox/Simethicone (Aluminum/Magnesium Susp 30 Ml Udc) 30 ml PO Q6H PRN PRN Reason: Dyspepsia Stop: 02/03/24 11:06 Bisacodyl (Bisacodyl 10 Mg Supp) 10 mg NM DAILY PRN PRN Reason: Constipation Stop: 02/03/24 11:06 Diphenhydramine HCl (Diphenhydramine Capsule 25 Mg Cap) 25 mg PO Q6H PRN PRN Reason: Allergic Rhinitis/Insomnia Stop: 02/03/24 11:06 Famotidine (Famotidine 20 Mg Tab) 20 mg PO Q12H PRN PRN Reason: Dyspepsia Stop: 02/03/24 11:06 Hydromorphone HCl (Hydromorphone Inj 0.5 Mg/0.5 Ml Syr) 0.5 mg IV Q3H PRN PRN Reason: MODERATE Pain (Scale 4,5,6) & Pre PT Stop: 01/18/24 11:06 Last Admin: 01/04/24 15:31 Dose: 0.5 mg Hydromorphone HCl (Hydromorphone Inj 1 Mg/Ml Syringe) 1 mg IV Q3H PRN PRN Reason: SEVERE Pain (Scale 7,8,9,10) Stop: 01/18/24 11:06 Hydroxyzine HCl (Hydroxyzine Hcl 25 Mg Tab) 25 mg PO Q8H PRN PRN Reason: Anxiety Stop: 02/03/24 11:06 Lactated Ringer's (Lr) 1,000 mls @ 150 mls/hr IV .Q6H40M SUE Stop: 02/03/24 11:06 Last Infusion: 01/05/24 05:37 Dose: Infused Promethazine HCl 12.5 mg/ (Sodium Chloride) 50.5 mls @ 202 mls/hr IV Q6H PRN PRN Reason: Nausea &/or Vomiting Stop: 02/03/24 11:06 Acetaminophen (Ofirmev) 1,000 mg in 100 mls @ 400 mls/hr IV Q8H PRN PRN Reason: Pain Rating 1-3 & Pre PT Stop: 01/05/24 11:07 Lorazepam 0.5 mg/ Syringe 0.5 mls @ 2 mls/min IV Q8H PRN; Protocol PRN Reason: Sedation/Anxiety Stop: 02/03/24 11:06 Influenza Virus Vaccine Quadrival (Do Not Administer Flu Vaccine) 1 each N/A PRN PRN PRN Reason: Notification Stop: 02/03/24 11:06 Insulin Aspart (Insulin Aspart Per Unit Charge) 0 units SC ACHS [facility] Stop: 02/03/24 11:59 Last Admin: 01/04/24 21:12 Dose: 1 units Insulin Glargine (Lantus Per Unit Charge) 15 units SC DAILY [facility] Stop: 02/04/24 08:59 Lorazepam (Lorazepam 0.5 Mg Tab) 0.5 mg PO Q8H PRN PRN Reason: Sedation/Anxiety Stop: 02/03/24 11:06 Losartan Potassium (Losartan Potassium 50 Mg Tab) 100 mg PO QAM [facility] Stop: 02/04/24 08:59 Magnesium Hydroxide (Magnesium Hydroxide Susp 30 Ml Udc) 30 ml PO Q24H PRN PRN Reason: Constipation Stop: 02/03/24 11:06 Metoclopramide HCl (Metoclopramide Hcl Inj 5 Mg/Ml 2 Ml Vial) 10 mg IV Q6H PRN PRN Reason: Nausea &/or Vomiting Stop: 02/03/24 11:06 Miscellaneous Information (Pharmacy Glycemic Mgmt Consult) 1 each N/A UD PRN PRN Reason: Consult Stop: 02/03/24 11:06 Multivitamins (Multivitamin Tab) 1 tab PO [facility] Stop: 02/04/24 08:59 Naloxone HCl (Naloxone Hcl 0.4 Mg/1 Ml Vial/Carp) 0.1 mg IV Q5M PRN PRN Reason: Oversedation/Resp depression Stop: 02/03/24 11:06 Ondansetron HCl (Ondansetron Inj 2 Mg/Ml 2 Ml Vial) 4 mg IV Q6H PRN PRN Reason: Nausea &/or Vomiting Stop: 02/03/24 11:06 Ondansetron HCl (Ondansetron 4 Mg Od Tab) 4 mg PO Q6H PRN PRN Reason: Nausea Stop: 02/03/24 11:06 Oxycodone HCl (Oxycodone Hcl Ir 5 Mg Tab (Immediate Release)) 5 - 10 mg PO Q4H PRN PRN Reason: Pain & Pre PT Stop: 01/18/24 11:06 Last Admin: 01/05/24 05:42 Dose: 10 mg Pantoprazole Sodium (Pantoprazole 40 Mg Tab) 40 mg PO DAILY [facility]UE Stop: 02/04/24 08:59 Pneumococcal Polyvalent Vaccine (Do Not Administer Pneumococcal Vaccine) 1 each N/A PRN PRN PRN Reason: Notification Stop: 02/03/24 11:06 Polyethylene Glycol (Polyethylene (Miralax) 17 Gm Pack) 17 gm PO Q6 SUE Stop: 02/04/24 05:59 Last Admin: 01/05/24 05:37 Dose: 17 gm Senna/Docusate Sodium (Docusate Sodium/Senna 50/8.6mg Tab) 2 tab PO HS SUE Stop: 02/03/24 20:59 Last Admin: 01/04/24 20:43 Dose: 2 tab Sodium Biphosphate/Sodium Phosphate (Sod Phosphate/Sod Biphosphate Enema 132 Ml Btl) 132 ml NM ONE PRN PRN Reason: Constipation Stop: 02/03/24 11:06 Tramadol HCl (Tramadol Hcl 50 Mg Tablet) 50 - 100 mg PO Q4H PRN PRN Reason: Moderate-Severe pain & Pre PT Stop: 02/03/24 11:06
[2024-01-05] MEDS: LANTUS PER UNIT CHARGE SC SCH ×2 (08:50→20:58)
[2024-01-05] MEDS: LOSARTAN POTASSIUM 50 MG TAB PO SCH (08:56)
[2024-01-05] MEDS: PANTOprazole 40 MG TAB PO SCH (08:57)
[2024-01-05] MEDS: MULTIVITAMIN TAB PO SCH (08:57)
--- NOTE | 2024-01-05 09:40 | Orthopedic Progress Note ---
Date of Service January 05, 2024 Assessment & Plan (1) Neurogenic claudication due to lumbar spinal stenosis: Plan: This time continue physical therapy monitor his JULIO C output anticipate discharge home in the next few days. Admission and Anticipated Discharge Date Admission Date: January 04, 2024 Subjective Back pain controlled leg pain markedly improved Physical Exam Physical Exam: Patient is up and ambulating. Is good strength testing. Results & Data Vital Signs (Past 12 Hours) Vital Signs Temp Pulse Resp BP Pulse Ox O2 Del Method 01/05/24 08:23 36.6 C 99 H 16 136/83 99 Room Air 01/05/24 05:29 37.2 C 94 H 16 177/93 H 97 Room Air 01/05/24 00:20 36.8 C 94 H 16 134/78 95 Room Air 01/04/24 22:56 161/85 H Queries Orthopedic Spine Obesity: Yes
--- NOTE | 2024-01-05 13:12 | Pharmacy Report ---
Pharmacy Glycemic Short Note 2 - Date of Service January 05, 2024 - Glycemic Short BSG Results (Last 24 hours): 01/04/24 01/04/24 01/04/24 16:48 18:38 20:50 Glucose POC Glucose 169 H 172 H 143 H 01/05/24 01/05/24 01/05/24 00:14 00:16 00:20 Glucose POC Glucose 53 L* 49 L* 45 L* 01/05/24 01/05/24 01/05/24 00:44 05:31 11:12 Glucose 183 H POC Glucose 78 220 H OUTPATIENT ANTIDIABETIC REGIMEN: * metformin 1000mg QAM * Lantus 24 units QAM * Novolog SS HbA1c 6.7% (12/21/23) ASSESSMENT: 01/05/24: * Patient unfortunately experienced an episode of hypoglycemia last evening (BSG of 45 mg/dL) * BSGs of 220 mg/dL and 220 mg/dL today - originally had loosened parameters given low, but will tighten slightly given continued high at lunch * No ongoing steroids 01/04/24: * Carlton is a 49 YOM admitted status post spinal decompression/fusion with a history of insulin dependent T2DM. Pharmacy has been consulted to assist with glycemic management while inpatient * Preoperative BSG this AM elevated, per med rec, patient received 24 units of Lantus and 8 units of Novolog at 0430. BSGs trended down to goal range at lunch time. * He does not appear to have received any steroids preoperatively or orders postoperatively. Basal scale added at bedtime if BSGs elevated. Will start basal insulin tomorrow at approximately 50% home dose * Novolog initiated at weight based stress of 2.5 PLAN FOR INPATIENT GLYCEMIC CONTROL: * Hold outpatient oral diabetes medications * Basal insulin * Lantus 15 units SC x 1 this morning * Lantus 0-5-10 units SC HS x 1 (see EHR for details) * Bolus insulin * NovoLog per scale ACHS or Q6hrs while NPO * Goal Range: Low 110 mg/dL - High 140 mg/dL * Correction Factor: 25 mg/dL/unit * Nutritional / Prandial insulin per carb ratio of 1 unit per 7 grams CHO consumed
[2024-01-06 06:09] LABS: Hematocrit (blood only) 31.9 % (42.0-52.0); Hemoglobin 10.8 g/dl (14.0-18.0); Mean Corpuscular Hemoglobin 32.2 pg (25.0-34.0); Mean Corpuscular Hgb Conc 33.9 g/dL (32.0-36.0); Mean Corpuscular Volume 95.2 fL (80.0-100.0); Mean Platelet Volume 10.5 fL (9.4-12.4); Platelet Count 250 K/uL (130-400); RDW Coefficient of Variation 11.5 % (11.5-14.5); RDW Standard Deviation 39.8 fL (36.4-46.3); Red Blood Count 3.35 M/uL (4.70-6.10); White Blood Count 10.27 K/ul (4.8-10.8)
[2024-01-06 06:29] LABS: BUN Creatinine Ratio 13.1 (10-20); Calcium 8.4 mg/dl (8.6-10.3); Creatinine Clr Calc Pharmacy 128.2 ml/min; Est GFR (Non-African American) 103.5 ml/min; Magnesium 1.6 mg/dl (1.7-2.4); Phosphorus 3.3 mg/dl (2.5-4.9); Potassium 4.3 mmol/L (3.5-5.1)
[2024-01-06] MEDS: traMADol HCL 50 MG TABLET PO PRN (08:06)
--- NOTE | 2024-01-06 08:06 | Hospitalist Progress Note ---
Date of Service January 06, 2024 Assessment & Plan (1) Status post lumbar surgery: (2) Neurogenic claudication due to lumbar spinal stenosis: Plan: Post op day# 2 S/P revision decompression and fusion L3-L5 by Dr Miranda Pain management per ortho Wound management per ortho PT/OT as appropriate DVT prophylaxis per ortho Incentive spirometry Acute blood loss anemia, post-op vs. dilutional - pre-op Hgb: 14 -> current ~11 (stable from yesterday) - cont. to monitor (3) DM type 2 (diabetes mellitus, type 2): Plan: Insulin-dependent A1c: 6.7 on 12/21/2023 Hold home metformin Basal bolus insulin per protocol. Glycemic pharmacist managing (4) HTN (hypertension): Plan: Continue losartan with holding parameters (5) GERD (gastroesophageal reflux disease): Plan: Continue PPI (6) HLD (hyperlipidemia): Plan: Currently not on medication DVT Prophylaxis SCDs Disposition per primary service Admission and Anticipated Discharge Date Admission Date: January 04, 2024 Subjective Pt seen in follow up of med consult s/p spinal surgery Currently laying in bed in NAD Pain is controlled No fever, chills, chest pain, shortness of breath. No abd. pain, n/v. he is passing flatus Review of Systems Review of Systems: All systems reviewed & are unremarkable except as noted in Subjective Physical Exam Physical Exam: General: no acute distress, overweight Head: normocephalic, atraumatic Eyes: conjunctiva non-injected, anicteric ENT: normal inspection external ears, nose, mucous membranes moist Neck: supple Lungs: clear, no respiratory distress, no wheezing/rhonchi/rales CV: RRR, no murmur, no pretibial edema Abd: normal BS, soft, non-tender Ext: no calf tenderness, moves extremities Neuro: A&O x 3, answers appropriately, speech fluent, no facial asymmetry, moves extremities Skin: warm, dry Results & Data Results & Data Vital Signs (Past 12 Hours) Vital Signs Temp Pulse Resp BP Pulse Ox O2 Del Method 01/05/24 20:46 37.7 C H 109 H 16 117/80 95 Room Air Laboratory Results 01/06/24 01/06/24 01/05/24 Range/Units 07:54 05:45 20:33 WBC 10.27 (4.8-10.8) K/ul RBC 3.35 L (4.70-6.10) M/uL Hgb 10.8 L (14.0-18.0) g/dl Hct 31.9 L (42.0-52.0) % MCV 95.2 (80.0-100.0) fL MCH 32.2 (25.0-34.0) pg MCHC 33.9 (32.0-36.0) g/dL RDW Std Deviation 39.8 (36.4-46.3) fL RDW Coeff of True 11.5 (11.5-14.5) % Plt Count 250 (130-400) K/uL MPV 10.5 (9.4-12.4) fL Sodium 133 L (136-145) mmol/L Potassium 4.3 (3.5-5.1) mmol/L Chloride 100 (98-107) mmol/L Carbon Dioxide 27 (21-32) mmol/L Anion Gap 6 (3-11) BUN 11 (6-23) mg/dl Creatinine 0.84 (0.6-1.4) mg/dl Est Cr Clr Drug Dosing 128.2 ml/min Est GFR ( Amer) 120.0 ml/min Est GFR (Non-Af Amer) 103.5 ml/min BUN/Creatinine Ratio 13.1 (10-20) Glucose 169 H (70-99(Fasting)) mg/dl POC Glucose 181 H 234 H (70-99) mg/dl Calcium 8.4 L (8.6-10.3) mg/dl Phosphorus 3.3 (2.5-4.9) mg/dl Magnesium 1.6 L (1.7-2.4) mg/dl 01/05/24 01/05/24 01/05/24 Range/Units 17:12 11:12 07:51 WBC (4.8-10.8) K/ul RBC (4.70-6.10) M/uL Hgb (14.0-18.0) g/dl Hct (42.0-52.0) % MCV (80.0-100.0) fL MCH (25.0-34.0) pg MCHC (32.0-36.0) g/dL RDW Std Deviation (36.4-46.3) fL RDW Coeff of True (11.5-14.5) % Plt Count (130-400) K/uL MPV (9.4-12.4) fL Sodium (136-145) mmol/L Potassium (3.5-5.1) mmol/L Chloride (98-107) mmol/L Carbon Dioxide (21-32) mmol/L Anion Gap (3-11) BUN (6-23) mg/dl Creatinine (0.6-1.4) mg/dl Est Cr Clr Drug Dosing ml/min Est GFR ( Amer) ml/min Est GFR (Non-Af Amer) ml/min BUN/Creatinine Ratio (10-20) Glucose (70-99(Fasting)) mg/dl POC Glucose 76 220 H 220 H (70-99) mg/dl Calcium (8.6-10.3) mg/dl Phosphorus (2.5-4.9) mg/dl Magnesium (1.7-2.4) mg/dl Medications Administered Current Inpatient Medications Acetaminophen (Acetaminophen 500 Mg Tab) 1,000 mg PO Q8H PRN PRN Reason: MILD Pain Scale 1,2,3 & Pre PT Stop: 02/03/24 11:06 Al Hydrox/Mg Hydrox/Simethicone (Aluminum/Magnesium Susp 30 Ml Udc) 30 ml PO Q6H PRN PRN Reason: Dyspepsia Stop: 02/03/24 11:06 Bisacodyl (Bisacodyl 10 Mg Supp) 10 mg GA DAILY PRN PRN Reason: Constipation Stop: 02/03/24 11:06 Diphenhydramine HCl (Diphenhydramine Capsule 25 Mg Cap) 25 mg PO Q6H PRN PRN Reason: Allergic Rhinitis/Insomnia Stop: 02/03/24 11:06 Famotidine (Famotidine 20 Mg Tab) 20 mg PO Q12H PRN PRN Reason: Dyspepsia Stop: 02/03/24 11:06 Hydromorphone HCl (Hydromorphone Inj 0.5 Mg/0.5 Ml Syr) 0.5 mg IV Q3H PRN PRN Reason: MODERATE Pain (Scale 4,5,6) & Pre PT Stop: 01/18/24 11:06 Last Admin: 01/05/24 20:06 Dose: 0.5 mg Hydromorphone HCl (Hydromorphone Inj 1 Mg/Ml Syringe) 1 mg IV Q3H PRN PRN Reason: SEVERE Pain (Scale 7,8,9,10) Stop: 01/18/24 11:06 Hydroxyzine HCl (Hydroxyzine Hcl 25 Mg Tab) 25 mg PO Q8H PRN PRN Reason: Anxiety Stop: 02/03/24 11:06 Promethazine HCl 12.5 mg/ (Sodium Chloride) 50.5 mls @ 202 mls/hr IV Q6H PRN PRN Reason: Nausea &/or Vomiting Stop: 02/03/24 11:06 Lorazepam 0.5 mg/ Syringe 0.5 mls @ 2 mls/min IV Q8H PRN; Protocol PRN Reason: Sedation/Anxiety Stop: 02/03/24 11:06 Sodium Chloride (Nss) 500 mls @ 80 mls/hr IV .Q6H15M [facility] Stop: 02/05/24 08:14 Influenza Virus Vaccine Quadrival (Do Not Administer Flu Vaccine) 1 each N/A PRN PRN PRN Reason: Notification Stop: 02/03/24 11:06 Insulin Aspart (Insulin Aspart Per Unit Charge) 0 units SC ACHS [facility] Stop: 02/03/24 11:59 Last Admin: 01/05/24 20:58 Dose: 4 units Insulin Glargine (Lantus Per Unit Charge) 12 units SC BID [facility] Stop: 02/05/24 08:59 Lorazepam (Lorazepam 0.5 Mg Tab) 0.5 mg PO Q8H PRN PRN Reason: Sedation/Anxiety Stop: 02/03/24 11:06 Losartan Potassium (Losartan Potassium 50 Mg Tab) 100 mg PO QAM [facility] Stop: 02/04/24 08:59 Last Admin: 01/06/24 08:00 Dose: 100 mg Magnesium Hydroxide (Magnesium Hydroxide Susp 30 Ml Udc) 30 ml PO Q24H PRN PRN Reason: Constipation Stop: 02/03/24 11:06 Magnesium Oxide (Magnesium Oxide 400 Mg Tab) 400 mg PO BID [facility] Stop: 02/05/24 08:59 Metoclopramide HCl (Metoclopramide Hcl Inj 5 Mg/Ml 2 Ml Vial) 10 mg IV Q6H PRN PRN Reason: Nausea &/or Vomiting Stop: 02/03/24 11:06 Miscellaneous Information (Pharmacy Glycemic Mgmt Consult) 1 each N/A UD PRN PRN Reason: Consult Stop: 02/03/24 11:06 Multivitamins (Multivitamin Tab) 1 tab PO QAM SUE Stop: 02/04/24 08:59 Last Admin: 01/06/24 08:00 Dose: 1 tab Naloxone HCl (Naloxone Hcl 0.4 Mg/1 Ml Vial/Carp) 0.1 mg IV Q5M PRN PRN Reason: Oversedation/Resp depression Stop: 02/03/24 11:06 Ondansetron HCl (Ondansetron Inj 2 Mg/Ml 2 Ml Vial) 4 mg IV Q6H PRN PRN Reason: Nausea &/or Vomiting Stop: 02/03/24 11:06 Ondansetron HCl (Ondansetron 4 Mg Od Tab) 4 mg PO Q6H PRN PRN Reason: Nausea Stop: 02/03/24 11:06 Oxycodone HCl (Oxycodone Hcl Ir 5 Mg Tab (Immediate Release)) 5 - 10 mg PO Q4H PRN PRN Reason: Pain & Pre PT Stop: 01/18/24 11:06 Last Admin: 01/06/24 05:11 Dose: 10 mg Pantoprazole Sodium (Pantoprazole 40 Mg Tab) 40 mg PO DAILY [facility] Stop: 02/04/24 08:59 Last Admin: 01/06/24 08:00 Dose: 40 mg Pneumococcal Polyvalent Vaccine (Do Not Administer Pneumococcal Vaccine) 1 each N/A PRN PRN PRN Reason: Notification Stop: 02/03/24 11:06 Polyethylene Glycol (Polyethylene (Miralax) 17 Gm Pack) 17 gm PO Q6 SUE Stop: 02/04/24 05:59 Last Admin: 01/06/24 05:11 Dose: 17 gm Senna/Docusate Sodium (Docusate Sodium/Senna 50/8.6mg Tab) 2 tab PO HS SUE Stop: 02/03/24 20:59 Last Admin: 01/05/24 20:57 Dose: 2 tab Sodium Biphosphate/Sodium Phosphate (Sod Phosphate/Sod Biphosphate Enema 132 Ml Btl) 132 ml GA ONE PRN PRN Reason: Constipation Stop: 02/03/24 11:06 Tramadol HCl (Tramadol Hcl 50 Mg Tablet) 50 - 100 mg PO Q4H PRN PRN Reason: Moderate-Severe pain & Pre PT Stop: 02/03/24 11:06
--- NOTE | 2024-01-06 08:31 | Discharge Summary ---
Date of Service January 06, 2024 Admission HPI Per Admitting Provider This is a 41-year-old male presents for chronic persistent back and leg pain and failing since course of nonoperative care is here for surgical invention. Principal Diagnosis Lumbar spinal stenosis with neurogenic claudication Discharge Data Allergies Allergy/AdvReac Type Severity Reaction Status Date / Time No Known Allergies Allergy Unknown Verified 01/04/24 06:25 Consultations 01/04/24 11:07 Consult Hospitalist Routine Procedures Performed Operation Date: 01/04/24 07:45 Actual Procedures p L3-L5 Decompression and Fusion, Spinal Cord Monitoring(Not Applicable) - Tigre Miranda DO Ordered Studies 01/04/24 07:45 [place] lumbar spine 2-3V Routine Hospital Course (1) Neurogenic claudication due to lumbar spinal stenosis: Patient underwent revision lumbar decompression and fusion tolerated this well was taken to the orthopedic floor postoperative. Postop Douglas progressed appropriate. Excellent strength testing. JULIO C drain decreasing appropriate. Pain well-controlled. Subsequent discharge home. Discharge orders instructions from the chart for further review. Total Time Total Time Spent Total Time Spent (In Minutes): 20 minutes Discharge Plan Discharge Items Patient Disposition: Home - Self-Care Reason For Visit: Recurrent Herniation Lumbar Disc, Spinal Stenosis Discharge Diagnosis: Lumbar spinal stenosis with neurogenic claudication Activity: As commented below Non-emergency contact: Primary Care Provider Call non-emergency contact if: you have any medication questions Follow-up/Referrals: Jodie Mckeon MD [Physician] - Diet: Regular Addtl Attending Provider Instructions: ACTIVITY RECOMMENDATIONS: SELF CARE INSTRUCTIONS AFTER THORACIC/LUMBAR FUSIONS 1. You may walk to your tolerance. It is good exercise for your legs and back. Expect some back and intermittent leg aches and pains. 2. You may perform "counter-top" level activities (make a sandwich, scott with a project, etc.). 3. No bending or lifting of more than 10 pounds or back twisting of any nature (roll like a log when turning in bed). 4. You may ride in a car for 20-30 minutes at a time. No driving until after your first visit with your doctor. 5. Frequent changes of position and restricting sitting to 30 minutes at a time will help limit the amount of back spasms and stiffness you may experience. 6. You may discontinue the use of ambulatory aids (cane, crutches, etc.) once your strength and confidence allow. 7. You may combine mechanic the shower and let water strike your incision when you arrive home at least once daily. Do not take a tub bath, sit in a hot tub or go into a swimming pool until after your first recheck in the office. SPECIAL CARE INSTRUCTIONS: VERY IMPORTANT TO READ AND REVIEW A. Your surgical incision has been closed with a cosmetic suture under the skin that will dissolve in about 6 weeks. In 14 days, you can use a pair of clean scissors and cut the suture that is left outside of the skin at the ends of your incision. 1. The small skin tapes can be removed 7 days after surgery if they have not fallen off by that point. 2. You may keep the wound open to air as much as possible to promote healing after post-op day number 5 unless told otherwise by your doctor. 3. If you think the wound looks like it is becoming infected (redness or worsening drainage) and/or you are experiencing fever, chill or worsening back pain and muscle spasms, contact the office so that we may evaluate you as soon as possible. B. Complications are uncommon, but please contact us if you have any signs or symptoms of: 1. wound infection (fever higher than 102.5 degrees F, redness, separation of wound, drainage, or increasing pain from the incision) 2. blood clots in legs (pain, swelling, redness and warmth in legs) 3. urinary tract infection (fever higher than 102.5 degrees F, burning upon urination or increased frequency of urination) 4. nerve problems (inability to walk on your toes or heels, numbness, loss of bowel or bladder control) 5. any other symptoms that concern you C. Please call the office at if you have any concerns or questions about your operation or recovery. D. No smoking! Smoking drastically decreases the chance of a solid fusion. E. Do not take any anti-inflammatory medications (Indocin, Advil, Motrin, Aspirin, Naprosyn, etc.) as these may inhibit the chance of a solid fusion. Tylenol is okay to take for pain. MANAGING PAIN AFTER SPINAL SURGERY 1. Narcotic medication is intended for short-term use and will be provided for surgical pain. Surgical pain usually lasts for a period of 4-6 weeks. Narcotic medication includes Percocet, Vicodin, Darvocet, Tylenol #3 or Lortab. 2. Longer-term pain is more appropriately treated with non-narcotic medication such as Tylenol ES. 3. Muscle spasm is not appropriately treated with narcotics. Muscle relaxers such as Soma, Flexeril or Skelaxin can be used along with Tylenol ES. 4. Remember that we all live with some "aches and pains". This is not unusual or uncommon after an injury or as we get older. a. Back pain is expected and may include muscle spasms for 4 to 6 weeks after surgery. The pain should gradually improve. If the pain worsens for no apparent reason, please contact the office. b. Intermittent leg pain may also be experienced and should not be concerned about unless it worsens for no apparent reason. If so, please contact the office. 5. We will provide appropriate medication within the normal guidelines of their prescribed use. We will also be very cautious and aware of potential abuse and extended duration of patients' medication needs. a. Pain medications are for your comfort and to assist with sleep and rest so that the tissue can heal. They are not provided in order to return to normal activity and should not be used through the day. To do so or worsening pain at night can result from ongoing tissue damage and development of tolerance to the prescribed medicine. 6. Please allow 2-3 days to process refills. Prescriptions will not be mailed but must be picked up at the office. FOLLOW UP VISIT: Keep your scheduled follow-up appointment. Any questions, please call the office at . Pending Studies at Discharge: No Stand-Alone Forms: My [facility], Smoking Cessation Medications and DC Order Prescriptions: New tramadol 50 mg tablet 50 mg PO Q6H PRN (Reason: pain, moderate) Qty: 30 0RF oxycodone 5 mg tablet 5 mg PO Q6H PRN (Reason: pain) Qty: 30 0RF Continued multivitamin Tablet 1 tab PO QAM insulin aspart U-100 [Novolog FlexPen U-100 Insulin] 100 unit/mL (3 mL) Insulin Pen 1 sliding scale dose SUBCUT USEASDIRECTD insulin glargine [Lantus Solostar U-100 Insulin] 100 unit/mL (3 mL) Insulin Pen 24 unit SUBCUT QAM Beet Supplement 1 dose PO QAM losartan 100 mg Tablet 100 mg PO QAM metformin 500 mg Tablet Extended Release 24 Hr 1,000 mg PO QAM pantoprazole 40 mg tablet,delayed release (DR/EC) 40 mg PO DAILY Discharge Orders: Discharge Order (Routine); Ordered 01/06/24 Ordered By: Tigre Miranda Admission Data Admit Date/Time: 01/04/24 09:55 Attending Provider: Tigre Miranda Admit Provider: Tigre Miranda Primary Care Provider: Addi Wright Other Providers: Sophie Liang
[2024-01-06] MEDS: LANTUS PER UNIT CHARGE SC SCH (08:40)
[2024-01-06] MEDS: MAGNESIUM OXIDE 400 MG TAB PO SCH (08:54)
[2024-01-06] MEDS: SODIUM CHLORIDE 0.9% 500 ML IV SCH (08:54)
== END 2024-01-06 14:18 | disposition home or self-care (01) | DRG 454 ==
LOC: ASU 06:07 → 3W 09:55